=== PATIENT | male | born 1995 | race American Indian/Alaskan Native ===

== ENCOUNTER 2019-02-28 14:29 | Emergency (ER) | payer SELFPAY ==
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
[2019-02-28 14:36] VITALS: BP 124/61
--- NOTE | 2019-02-28 15:57 | XRay Report ---
FACIAL BONES, 4 VIEWS INDICATION: jaw pain. COMPARISON: None. IMPRESSION: A mildly displaced fracture is identified through the right mandibular neck region. The remaining facial bones are intact. The sinuses are well-aerated. Orbital cavities are symmetric and u nremarkable. The zygomas are intact. Signer Name: Jermaine Mead Jr, MD Signed: 02/28/2019 3:52 PM Workstation Name: [id number]
[2019-02-28] MEDS ORDERED: IBUPROFEN PO ONE (16:51)
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
== END 2019-02-28 17:41 | disposition home or self-care (01) ==
LOC: ED 14:29
DX: S02.609A Fracture of mandible, unspecified, initial encounter for closed fracture (principal); Z79.899 Other long term (current) drug therapy; W50.1XXA Accidental kick by another person, initial encounter; Y93.89 Activity, other specified; Y92.89 Other specified places as the place of occurrence of the external cause; Y99.8 Other external cause status
CPT/HCPCS: 70150